=== PATIENT | male | born 1955 | race Caucasian/White ===

== ENCOUNTER → 2018-06-14 | Outpatient (CLI) | payer BC ==
[~2018-06-14] MED LIST: IOHEXOL-350 75 ML VIAL IV ONE
== END | disposition home or self-care (01) ==
LOC: RAH 09:45
PROVIDERS: ATTEND Urology
DX: N28.1 Cyst of kidney, acquired (principal); K76.89 Other specified diseases of liver; C61 Malignant neoplasm of prostate
CPT/HCPCS: 74177; Q9967

== ENCOUNTER → 2018-06-24 | Outpatient (CLI) | payer BC | END | disposition home or self-care (01) | LOC: RAH 12:44 → EDUNIT# 13:00 | PROVIDERS: ATTEND Urology | DX: C61 Malignant neoplasm of prostate (principal) | CPT/HCPCS: 78306; A9503 ==

== ENCOUNTER 2018-10-29 07:23 | Day surgery (SDC) | payer BC ==
[2018-10-27 16:16] LABS: BASOPHILS % (AUTO) 0.5 % (0.0-5.0); EOSINOPHILS % (AUTO) 1.2 % (0.0-8.0); HEMATOCRIT 34.9 % (42-54); LYMPHOCYTES % (AUTO) 25.2 % (21.0-51.0); MEAN CORPUSCULAR HGB CONC 35.1 g/dL (32.0-36.0); MEAN CORPUSCULAR VOLUME 99.9 fL (79-99); MONOCYTES % (AUTO) 8.6 % (3.0-13.0); NEUTROPHILS % (AUTO) 64.5 % (40.0-77.0); PLATELET COUNT (AUTO) 145 K/uL (130-400); RED BLOOD CELL COUNT(AUTO) 3.49 MIL/uL (4.50-6.20); RED CELL DISTRIBUTION WIDTH 12.2 % (11.0-15.5)
[2018-10-27 16:24] VITALS: BP 113/69
[~2018-10-29] VITALS: Ht 182.9 cm; Wt 84.7 kg
[2018-10-29] VITALS (13 sets, daily range): BP systolic 86–130; BP diastolic 48–78
[2018-10-29] MEDS: CEFTRIAXONE SODIUM 1 GM IVP SCH ×2 (05:00→08:40)
[~2018-10-29 07:23] MED LIST changes: +BICA50TA7 PO; +BIOT5000 PO; +COQ10 PO; -IOHEXOL-350 75 ML VIAL IV ONE; +METO-391 PO; +MVI PO; +TAMS-1 PO; +ZINC50TA64 PO
[2018-10-29] MEDS ORDERED: LACTATED RINGERS 1000ML 1,000 ML IV ONE (08:06)
[2018-10-29] MEDS ORDERED: MIDAZOLAM HCL 1 MG/ML 2ML VIAL ONE (08:23)
[2018-10-29] MEDS ORDERED: SUCCINYLCHOLINE 200MG/10ML SYR ONE (08:23)
[2018-10-29] MEDS ORDERED: ONDANSETRON HCL 4 MG/2 ML VIAL ONE (08:23)
[2018-10-29] MEDS ORDERED: LIDOCAINE PF 2% 5ML ABBOJECT ONE (08:23)
[2018-10-29] MEDS ORDERED: GLYCOPYRROLATE 1 MG/5 ML SYRINGE ONE (08:23)
[2018-10-29] MEDS ORDERED: DEXAMETHASONE SOD PHOSPHATE 10MG/ML 1ML VIAL ONE (08:23)
[2018-10-29] MEDS ORDERED: FENTANYL CITRATE PF 50 MCG/1 ML 2ML VIAL ONE (08:24)
[2018-10-29] MEDS ORDERED: ROCURONIUM 10MG/1ML SYR 10 MG/ML ML ONE (08:24)
[2018-10-29] MEDS ORDERED: NEOSTIGMINE 5MG/5ML SYR IV ONE (08:24)
[2018-10-29] MEDS ORDERED: PROPOFOL 10 MG/ML 20ML VIAL IV ONE (08:24)
[2018-10-29] MEDS ORDERED: EPHEDRINE SULFATE 50 MG/ML AMPULE ONE (08:48)
[2018-10-29] MEDS: OPIUM/BELLADONNA ALKALOIDS 1 EACH SUPP.RECT RC ONE ×2 (09:30→10:02)
[2018-10-29] MEDS ORDERED: PHENAZOPYRIDINE HCL 200 MG TABLET ONE (10:19)
== END 2018-10-29 11:30 | disposition home or self-care (01) ==
LOC: DAH 07:23
PROVIDERS: ATTEND Urology
DX: N40.1 Benign prostatic hyperplasia with lower urinary tract symptoms (principal); R33.8 Other retention of urine; R39.14 Feeling of incomplete bladder emptying; N13.8 Other obstructive and reflux uropathy; Z88.8 Allergy status to other drugs, medicaments and biological substances; Z79.899 Other long term (current) drug therapy; Z98.890 Other specified postprocedural states; I10 Essential (primary) hypertension
CPT/HCPCS: 36415; 52648; 85025; A4218; A4340; A4354; A4358; A4510; A4600; A4606; J0330; J0696; J1100; J2001; J2250; J2405; J2704; J2710; J3010; J3490 ×2; J7120 ×2